=== PATIENT | female | born 1985 | race Caucasian/White ===

== ENCOUNTER 2017-06-12 14:46 | Emergency (ER) | payer OTHER ==
[2017-06-12] MEDS: predniSONE 20 MG TAB PO (17:12)
[2017-06-12] MEDS: KETOROLAC 30 MG INJ IM (17:13)
[2017-06-12] MEDS: ALBUTEROL 0.5% (NEB) 2.5 MG/0.5 ML AMP INH ×3 (17:25→19:03)
[2017-06-12] MEDS: IPRATROPIUM (NEB) 0.5 MG/2.5 ML AMP INH ×2 (17:25→19:02)
[2017-06-12 19:02] LABS: ADD MAN DIFF? NO
[2017-06-12] MEDS: MAGNESIUM SULFATE 2 GM/50 ML 50 ML IVPB (19:05)
[2017-06-12 19:06] LABS: BASOPHIL # 0.1 10^3/ul (0.0-0.1); BASOPHILS % 0.3 % (0.0-2.0); EOSINOPHILS # 0.3 10^3/ul (0.0-0.5); EOSINOPHILS % 1.7 % (0.0-7.0); HEMATOCRIT 43.1 % (37.0-47.0); HEMOGLOBIN 14.6 g/dl (12.0-16.0); LYMPHOCYTES # 2.5 10^3/ul (0.8-2.9); LYMPHOCYTES % 16.3 % (15.0-51.0); MEAN CORPUSCULAR HEMOGLOBIN 30.2 pg (29.0-33.0); MEAN CORPUSCULAR HGB CONC 33.9 g/dl (32.0-37.0); MEAN PLATELET VOLUME 10.1 fl (7.4-10.4); MONOCYTE # 0.4 10^3/ul (0.3-0.9); MONOCYTES % 2.7 % (0.0-11.0); NEUTROPHIL # 12.2 10^3/ul (1.6-7.5); NEUTROPHILS % 78.6 % (39.0-77.0); PLATELET COUNT 352 10^3/UL (140-415); RED BLOOD COUNT 4.84 10^6/ul (4.20-5.40)
[2017-06-12 19:06] LABS: WHITE BLOOD COUNT 15.6 10^3/ul (4.8-10.8)
[2017-06-12 19:26] LABS: ALANINE AMINOTRANSFERASE 33 IU/L (13-69); ALBUMIN 4.8 g/dl (3.3-4.9); ALBUMIN/GLOBULIN RATIO 1.37; ALKALINE PHOSPHATASE 91 IU/L (42-121); ANION GAP 20 (8-16); ASPARTATE AMINO TRANSFERASE 31 IU/L (15-46); BLOOD UREA NITROGEN 11 mg/dl (7-20); CALCIUM 9.5 mg/dl (8.4-10.2); CARBON DIOXIDE 26 mmol/L (21-31); CHLORIDE 103 mmol/L (97-110); GLUCOSE 122 mg/dl (70-220); POTASSIUM 3.5 mmol/L (3.5-5.1); SODIUM 145 mmol/L (135-144); TOTAL PROTEIN 8.3 g/dl (6.1-8.1)
[2017-06-12] MEDS: HYDROCODONE/APAP (5/325) TAB PO (20:36)
[2017-06-12] MEDS: SOD CHLORIDE 0.9% 1,000 ML IV (20:38)
== END 2017-06-12 22:20 | disposition home or self-care (01) ==
LOC: FTE 14:46
DX: J45.901 Unspecified asthma with (acute) exacerbation (principal); M54.5 Low back pain; R05 Cough; Z87.891 Personal history of nicotine dependence
CPT/HCPCS: 36415; 71045; 80053; 81025; 85025; 94644; 94645; 96372; 96374; 99285-25

== ENCOUNTER 2018-07-10 10:33 | Emergency (ER) | payer OTHER ==
[2018-07-10] MEDS: METHYLPREDNISOLONE 125 MG INJ IV (11:42)
[2018-07-10] MEDS: KETOROLAC 30 MG INJ IV (11:42)
[2018-07-10] MEDS: SOD CHLORIDE 0.9% 1,000 ML IV (11:42)
[2018-07-10] MEDS: ALBUTEROL 0.5% (NEB) 2.5 MG/0.5 ML AMP INH (11:54)
[2018-07-10] MEDS: IPRATROPIUM (NEB) 0.5 MG/2.5 ML AMP INH (11:54)
== END 2018-07-10 13:58 | disposition home or self-care (01) ==
LOC: FTE 13:58
DX: J45.901 Unspecified asthma with (acute) exacerbation (principal)
CPT/HCPCS: 81025; 94644; 96361; 96374; 96375; 99284-25